=== PATIENT | female | born 1950 | race Caucasian/White ===

== ENCOUNTER 2018-10-08 09:36 | Emergency (ER) | payer MEDICARE, BC ==
[~2018-10-08] VITALS: Ht 162.6 cm; Wt 70.0 kg
[~2018-10-08 09:36] MED LIST: ASCO-205 PO; ASPI-1265 PO; COU4T PO; COU5T PO; DICL1TAB PO; ERGO400C PO; EVE1000C3 PO; FISH400C3 PO; MULT-1179 PO; OSC500T PO; SOTA80TA73 PO; UBID10CA4 PO; VITA1TAB20 PO; ZOC40T PO
[2018-10-08] MEDS ORDERED: ibuprofen 200mg tablet PO ONE (09:45)
[2018-10-08 10:54] VITALS: BP 132/65
== END 2018-10-08 10:56 | disposition home or self-care (01) ==
LOC: ER 09:36
DX: M19.032 Primary osteoarthritis, left wrist (principal); M25.532 Pain in left wrist; I48.91 Unspecified atrial fibrillation; Z90.49 Acquired absence of other specified parts of digestive tract; Z95.1 Presence of aortocoronary bypass graft; Z90.710 Acquired absence of both cervix and uterus; Z95.0 Presence of cardiac pacemaker; Z79.82 Long term (current) use of aspirin; Z79.899 Other long term (current) drug therapy; Z79.01 Long term (current) use of anticoagulants
CPT/HCPCS: 29125; 73100; 99283

== ENCOUNTER 2019-03-12 05:24 | Inpatient (IN) | payer MEDICARE, BC ==
[2019-03-10 15:15] LABS: CLARITY,URINE SLIGHTLY CLOUDY (Clear); COLOR,URINE YELLOW (Yellow); GLUCOSE, URINE NEGATIVE (Neg); KETONES,URINE NEGATIVE (Neg); LEUKOCYTE ESTERASE ,URINE NEGATIVE (Neg); NITRITES, URINE NEGATIVE (Neg); OCCULT BLOOD,URINE NEGATIVE (Neg); PROTEIN,URINE NEGATIVE (Neg); UROBILINOGEN,URINE 0.2 E.U/dL (0.2-1.0)
[2019-03-10 15:16] LABS: UA COLLECTION TYPE CLN CATCH MIDSTREAM
[2019-03-10 15:17] LABS: BASOPHILS % (AUTO) 0.7 % (0-1); EOSINOPHILS # (AUTO) 0.1 X10'3 (0-0.9); EOSINOPHILS % (AUTO) 1.5 % (0-6); LYMPHOCYTES # (AUTO) 2.2 X10'3 (1.1-4.8); LYMPHOCYTES % (AUTO) 35.6 % (21-51); MEAN CORPUSCULAR HEMOGLOBIN 32.8 PG (27.0-31.0); MEAN CORPUSCULAR VOLUME 96.5 FL (78-98); MEAN PLATELET VOLUME 8.4 FL (7.4-10.4); MONOCYTES # (AUTO) 0.5 X10'3 (0-0.9); MONOCYTES % (AUTO) 8.2 % (2-12); NEUTROPHILS # (AUTO) 3.3 X10'3 (1.8-7.7); PRE OP HEMATOCRIT 43.5 % (35.0-45.0); PRE OP HEMOGLOBIN 14.8 g/dL (12.0-16.0); PRE OP PLATELET COUNT 203 X10'3 (140-440); RED CELL DISTRIBUTION WIDTH 14.4 % (11.5-14.5)
[2019-03-10 15:24] LABS: AMORPHOUS URATES 2+; BACTERIA,URINE NONE SEEN /HPF (Neg); RBC,URINE NONE SEEN /HPF (0-2); SQUAMOUS EPITHELIAL CELL,UR FEW /LPF (FEW)
[2019-03-10 15:27] LABS: ALBUMIN 3.7 G/DL (3.4-5.0); ALBUMIN/GLOBULIN RATIO 1.1 (1.1-1.5); ALKALINE PHOSPHATASE 85 IU/L (46-116); BLOOD UREA NITROGEN 17 MG/DL (7-18); CALCIUM 9.6 MG/DL (8.5-10.1); CHLORIDE 104 MMOL/L (99-107); CREATININE 0.85 MG/DL (0.40-0.90); PRE OP ALT 62 U/L (30-65); PRE OP ANION GAP 7 (8-16); PRE OP AST 34 U/L (10-37); PRE OP BILIRUB, TOTAL 0.4 MG/DL (0.0-1.0); PRE OP GLUCOSE 92 MG/DL (70-104); PRE OP POTASSIUM 4.4 MMOL/L (3.4-5.1); PRE OP SODIUM 139 MMOL/L (135-145); eGFR 66 ML/MIN
[2019-03-10 15:30] LABS: PRE OP PROTIME 16.8 SECONDS (9.0-12.0)
[2019-03-10 15:32] LABS: PRE OP INR 1.7 INR
[~2019-03-12] VITALS: Ht 160 cm; Wt 72.7 kg
[2019-03-12] VITALS (22 sets, daily range): BP systolic 97–178; BP diastolic 55–88
[~2019-03-12 05:24] MED LIST changes: -ASCO-205 PO; +CHOL10002 PO; -COU4T PO; -COU5T PO; -DICL1TAB PO; +DIGO125T20 PO; -ERGO400C PO; -VITA1TAB20 PO; +WARF6TAB PO; +ringers solution, lacted 1,000 ML IV SCH
[2019-03-12] MEDS ORDERED: famotidine 20mg tablet PO ONE (05:30)
[2019-03-12] MEDS ORDERED: albuterol 2.5 MG/3 ML nebule NEB ONE (05:30)
[2019-03-12] MEDS ORDERED: LIDOcaine 1% (10mg/ml) 2ml vial ONE ×2 (05:58→06:42)
[2019-03-12 07:15] LABS: INR 1.1 INR
[2019-03-12] MEDS ORDERED: MIDAZolam 5mg/5ml vial ONE (07:19)
[2019-03-12] MEDS ORDERED: propofol inj 20 ML IV ONE (07:20)
[2019-03-12] MEDS ORDERED: rocuronium 10mg/ml inj IV ONE ×2 (07:20→07:46)
[2019-03-12] MEDS ORDERED: fentaNYL /PF 50mcg/ml 5ml ampule ONE (07:20)
[2019-03-12] MEDS ORDERED: cefazolin/dext.iso 2gm/100 ML IV ONE (07:45)
[2019-03-12] MEDS ORDERED: ePHEDrine 50MG/ML INJ. ONE (07:46)
[2019-03-12] MEDS ORDERED: sevoflurane 250ml liquid IH ONE (07:46)
[2019-03-12] MEDS ORDERED: morphine /PF 1mg/ml 10ml inj. ONE (08:48)
[2019-03-12] MEDS ORDERED: BUPIVAcaine/PF 2.5mg/ml (0.25%) 10ml vial ONE (08:49)
[2019-03-12] MEDS ORDERED: ringers solution, lacted 1,000 ML IV SCH (09:39)
[2019-03-12] MEDS ORDERED: naloxone 2mg/2ml inj 2 MG in normal saline 500ml IV soln 500 ML IV PRN (09:39)
[2019-03-12] MEDS ORDERED: morphine 4 MG/ML inj SYRINge IV PRN ×4 (09:40→11:45)
[2019-03-12] MEDS ORDERED: proCHLORperazine 10 MG/2 ml inj IV PRN (09:40)
[2019-03-12] MEDS ORDERED: ondansetron/PF 4mg/2ml inj IV PRN ×2 (09:40→11:45)
[2019-03-12] MEDS ORDERED: meperidine/PF 25mg/ml syringe IV PRN ×3 (09:40)
[2019-03-12] MEDS ORDERED: neostigmine methylsulfate 1 MG/ML 10ml vial ONE (11:39)
[2019-03-12] MEDS ORDERED: glycopyrrolate 0.2mg/ml inj ONE (11:39)
[2019-03-12] MEDS ORDERED: naloxone 0.4 mg/ml inj IV PRN (11:45)
[2019-03-12] MEDS ORDERED: CADD PCA waste documentation MC PRN (11:45)
[2019-03-12] MEDS ORDERED: HYDROcodone/acetaminophen 10/325mg tab PO PRN ×2 (11:45)
[2019-03-12] MEDS ORDERED: metoclopramide 5 mg/ml inj IV PRN (11:45)
[2019-03-12] MEDS ORDERED: albuterol 2.5 MG/3 ML nebule NEB PRN (11:45)
--- NOTE | 2019-03-12 11:45 | NUR ---
Received from OR via ICU BED, accompanied by Anesthesiologist DR. BERNAL and report given by Anesthesiolgist. PT ARRIVED WITH O2 VIA MASK AT 10L, ARTLINE TO RT RAD LEVELED AND ZEROED. CVL TO RT NECK. EPIDURAL IN PLACE, MEDICATION STARTED. CT TO LT CHEST X2 TO SUC, AIR NOTED, MIN OUTPUT. DRESSING CDI TO CHEST. FC IN PLACE WITH CLEAR YELLOW URINE. SCDS IN PLACE. MOVES UPPER EXT WELL, EPIDURAL PREVENTS PT FROM MOVING LOWER EXT. PULSES AND ASBESTOS REMOVAL SUPERVISOR WNL
[2019-03-12] MEDS: morphine/PF injection 20 MG, BUPIVAcaine 0.5% inj/PF 250 MG in normal saline 250ml IV s... EPI SCH (12:12)
[2019-03-12 12:15] LABS: ABG HCO3 24.5 mmol/L (22.0-26.0); ABG OXYGEN SATURATION 97.5 % (95-98); ABG PCO2 (T) 49.1 mmHg (32.0-45.0); ABG PH (T) 7.316 (7.350-7.450); ABG PO2 (T) 115.1 mmHg (83-108); FLOW 3 L/min; FMetHb 0.3 % (0.3-1.12); FO2Hb 97.2 % (94-100); TOTAL HEMOGLOBIN 12.9 G/dl (12.0-16.0)
--- NOTE | 2019-03-12 12:20 | NUR ---
Patient in recovery room. I have received report from ILSA Nicole and had the opportunity to ask questions. Awaiting pt's arrival to ICU room 2038.
--- NOTE | 2019-03-12 12:30 | NUR ---
Report called to receiving nurse ROMÁN ROSENBAUM. Transferred via ICU BED WITH X3 BAGS OF Belongings. Special Issues communicated to receiving nurse. VSS ON 3L NC. DR SMITH AWARE OF AIR LEAK.
--- NOTE | 2019-03-12 12:30 | NUR ---
Pt arrived from recovery room in bed. Post op vital signs obtained, will continue to monitor post op vitals per policy. Pt resting comfortably, in no acute distress. Opened eyes when greeted, asked this RN to "scratch my nose". Chest tube assessed, SCDs applied, pt assessed. Will continue to closely monitor.
[2019-03-12] MEDS: potassium Cl 20mEq in D5-NS 1,000 ML IV SCH (13:45)
[2019-03-12] MEDS ORDERED: NORepinephrine 8mg/ 250ml NS 250 ML IV PRN (15:12)
[2019-03-12] MEDS ORDERED: NORepinephrine 8mg/ 250ml NS 250 ML IV ONE (15:16)
[2019-03-12] MEDS: ceFAZolin 1GM/D5W- ADD-VANTAGE 50 ML IV SCH ×2 (17:00→23:52)
--- NOTE | 2019-03-12 17:45 | NUR ---
While in room to check blood glucose level & chatting with pt, pt became suddenly angry and crying, stating "I've asked so many times for fluids and nobody is helping me". Pt had been given water once awake & alert and this RN witnessed pt drink from cup of water independently without difficulty. Pt given 2 boxes of apple juice.
--- NOTE | 2019-03-12 18:26 | NUR ---
Problems reprioritized. Patient report given, questions answered & plan of care reviewed with ILSA Mack.
--- NOTE | 2019-03-12 18:30 | NUR ---
Patient in room ICU 2038. I have received report from Denisse ROSENBAUM and had the opportunity to ask questions and assume patient care.
[2019-03-13] VITALS (24 sets, daily range): BP systolic 87–128; BP diastolic 50–75
[2019-03-13] MEDS: potassium Cl 20mEq in D5-NS 1,000 ML IV SCH ×2 (03:32→12:43)
[2019-03-13 05:23] LABS: ALANINE AMINOTRANSFERASE 37 U/L (12-78); ALBUMIN 2.9 G/DL (3.4-5.0); ALBUMIN/GLOBULIN RATIO 1.1 (1.1-1.5); ALKALINE PHOSPHATASE 52 IU/L (46-116); ANION GAP 8 (8-16); ASPARTATE AMINO TRANSFERASE 20 U/L (10-37); BILIRUBIN,TOTAL 0.5 MG/DL (0.1-1.0); BLOOD UREA NITROGEN 11 MG/DL (7-18); BUN/CREATININE RATIO 17.7 (6.6-38.0); CALCIUM 8.4 MG/DL (8.5-10.1); CHLORIDE 105 MMOL/L (99-107); CREATININE 0.62 MG/DL (0.40-0.90); GLUCOSE 131 MG/DL (70-104); MAGNESIUM 1.6 MG/DL (1.5-2.4); POTASSIUM 3.9 MMOL/L (3.5-5.1); SODIUM 138 MMOL/L (135-145); TOTAL CARBON DIOXIDE 24.8 MMOL/L (24-32); TOTAL PROTEIN 5.5 G/DL (6.4-8.2); eGFR > 90 ML/MIN
[2019-03-13 05:23] LABS: BASOPHILS % (AUTO) 0.3 % (0-1); EOSINOPHILS % (AUTO) 0.3 % (0-6); HEMATOCRIT 37.8 % (35.0-45.0); HEMOGLOBIN 12.8 g/dl (12.0-16.0); LYMPHOCYTES # (AUTO) 1.5 X10'3 (1.1-4.8); LYMPHOCYTES % (AUTO) 17.9 % (21-51); MEAN CORPUSCULAR HEMOGLOBIN 32.7 PG (27.0-31.0); MEAN CORPUSCULAR HGB CONC 33.8 g/dL (33.0-36.5); MEAN CORPUSCULAR VOLUME 96.8 FL (78-98); MEAN PLATELET VOLUME 8.6 FL (7.4-10.4); MONOCYTES # (AUTO) 0.6 X10'3 (0-0.9); MONOCYTES % (AUTO) 7.5 % (2-12); NEUTROPHILS # (AUTO) 6.4 X10'3 (1.8-7.7); PLATELET COUNT 163 X10'3 (140-440); RED CELL DISTRIBUTION WIDTH 14.7 % (11.5-14.5); WHITE BLOOD COUNT 8.6 X10'3 (4.5-11.0)
--- NOTE | 2019-03-13 06:51 | NUR ---
Problems reprioritized. Patient report given, questions answered & plan of care reviewed with Jeane ROSENBAUM.
[2019-03-13] MEDS ORDERED: temazepam 15mg capsule PO PRN (13:45)
[2019-03-13] MEDS ORDERED: magnesium 4gm in 100ml NS 100 ML IV ONE (13:55)
[2019-03-13] MEDS: digoxin 125mcg (0.125mg) tablet PO SCH (16:19)
[2019-03-13] MEDS: calcium carbonate 500mg tablet PO SCH (16:19)
[2019-03-13] MEDS: morphine/PF injection 20 MG, BUPIVAcaine 0.5% inj/PF 250 MG in normal saline 250ml IV s... EPI SCH (16:54)
--- NOTE | 2019-03-13 18:27 | NUR ---
Problems reprioritized. Patient report given, questions answered & plan of care reviewed with Frederick ROSENBAUM.
--- NOTE | 2019-03-13 18:30 | NUR ---
Patient in room ICU 2038. I have received report from Jeane ROSENBAUM and had the opportunity to ask questions and assume patient care.
[2019-03-13] MEDS ORDERED: apixaban 5mg tablet PO SCH (20:00)
[2019-03-13] MEDS: sotalol 80mg tablet PO SCH (20:06)
[2019-03-13] MEDS: warfarin 3mg tablet PO SCH (20:07)
[2019-03-13] MEDS: atorvastatin 10mg tablet PO SCH (20:07)
[2019-03-13] MEDS: vitamin D (cholecalciferol) 1,000 unit tablet PO SCH (20:07)
[2019-03-13] MEDS ORDERED: FISH OIL PO SCH (21:00)
[2019-03-13] MEDS ORDERED: [UNRECOGNIZED DRUG - OTHER] PO SCH (21:00)
[2019-03-13] MEDS ORDERED: FLAX PO SCH (21:00)
[2019-03-13] MEDS ORDERED: BORAGE PO SCH (21:00)
[2019-03-14] VITALS (24 sets, daily range): BP systolic 81–119; BP diastolic 44–65
[2019-03-14 04:03] LABS: BASOPHILS % (AUTO) 0.1 % (0-1); EOSINOPHILS % (AUTO) 0.3 % (0-6); HEMATOCRIT 37.2 % (35.0-45.0); HEMOGLOBIN 12.8 g/dl (12.0-16.0); LYMPHOCYTES # (AUTO) 1.4 X10'3 (1.1-4.8); LYMPHOCYTES % (AUTO) 14.8 % (21-51); MEAN CORPUSCULAR HEMOGLOBIN 33.3 PG (27.0-31.0); MEAN CORPUSCULAR HGB CONC 34.4 g/dL (33.0-36.5); MEAN CORPUSCULAR VOLUME 96.6 FL (78-98); MEAN PLATELET VOLUME 8.5 FL (7.4-10.4); MONOCYTES # (AUTO) 0.9 X10'3 (0-0.9); MONOCYTES % (AUTO) 9.8 % (2-12); NEUTROPHILS # (AUTO) 7.2 X10'3 (1.8-7.7); PLATELET COUNT 138 X10'3 (140-440); RED BLOOD COUNT 3.84 X10'6 (4.20-5.60); RED CELL DISTRIBUTION WIDTH 14.5 % (11.5-14.5); WHITE BLOOD COUNT 9.5 X10'3 (4.5-11.0)
[2019-03-14 04:14] LABS: ALANINE AMINOTRANSFERASE 33 U/L (12-78); ALBUMIN 2.4 G/DL (3.4-5.0); ALBUMIN/GLOBULIN RATIO 0.8 (1.1-1.5); ALKALINE PHOSPHATASE 53 IU/L (46-116); ANION GAP 3 (8-16); ASPARTATE AMINO TRANSFERASE 28 U/L (10-37); BILIRUBIN,TOTAL 0.4 MG/DL (0.1-1.0); BLOOD UREA NITROGEN 8 MG/DL (7-18); BUN/CREATININE RATIO 12.1 (6.6-38.0); CALCIUM 8.2 MG/DL (8.5-10.1); CHLORIDE 104 MMOL/L (99-107); CREATININE 0.66 MG/DL (0.40-0.90); GLUCOSE 116 MG/DL (70-104); POTASSIUM 3.8 MMOL/L (3.5-5.1); SODIUM 136 MMOL/L (135-145); TOTAL CARBON DIOXIDE 29.4 MMOL/L (24-32); TOTAL PROTEIN 5.3 G/DL (6.4-8.2); eGFR 89 ML/MIN
[2019-03-14 04:15] LABS: INR 1.1 INR
--- NOTE | 2019-03-14 06:30 | NUR ---
Patient in room ICU 2038. I have received report from ILSA Mack and had the opportunity to ask questions and assume patient care.
--- NOTE | 2019-03-14 06:43 | NUR ---
Problems reprioritized. Patient report given, questions answered & plan of care reviewed with Terri ROSENBAUM.
[2019-03-14] MEDS: sotalol 80mg tablet PO SCH ×2 (08:00→20:36)
[2019-03-14] MEDS ORDERED: UBIDECARENONE 200 MG PO SCH (08:00)
[2019-03-14] MEDS ORDERED: [UNRECOGNIZED DRUG - OTHER] PO SCH (08:00)
[2019-03-14] MEDS: multivitamins, therapeutics tablet PO SCH (08:19)
[2019-03-14] MEDS: aspirin 81mg tab.chew PO SCH (08:20)
[2019-03-14] MEDS: digoxin 125mcg (0.125mg) tablet PO SCH (08:20)
[2019-03-14] MEDS ORDERED: HYDROmorphone 1 mg/ml syringe IV PRN (10:40)
[2019-03-14] MEDS ORDERED: HYDROmorphone inj. 0.5 MG/0.5 ML DISP.SYRIN IV PRN (10:40)
[2019-03-14] MEDS ORDERED: HYDROcodone/acetaminophen 10/325mg tab PO PRN (10:40)
--- NOTE | 2019-03-14 10:40 | NUR ---
Dr Olson at bedside, informed him of patient's status, still on epidural at lowest dose, levo at 2mcg unable to wean. He assessed chest tube and put it to water seal. I told him I held sotolol to see if we can get her levophed needs decreased. He states okay to turn off epidural, wait 4 hours and if tolerating well it can be taken out by anaesthesia, also start PO pain meds, IV for breakthrough - see orders. States try to get levophed off also. States pt needs to get up with PT and continue pulmonary toileting, can go upstairs to surgical probably tomorrow. States okay to DC accu checks as patient has not met protocol.
[2019-03-14] MEDS: calcium carbonate 500mg tablet PO SCH (12:53)
--- NOTE | 2019-03-14 17:30 | NUR ---
Anesthesiologist at bedside, removed epidural, patient tolerated well, site covered with bandaid. Medication bag wasted with Jeane Weiner RN and sheet filled out, returned to pharmacy.
--- NOTE | 2019-03-14 18:27 | NUR ---
Problems reprioritized. Patient report given, questions answered & plan of care reviewed with ILSA Mack.
--- NOTE | 2019-03-14 18:30 | NUR ---
Patient in room ICU 2038. I have received report from Terri ROSENBAUM and had the opportunity to ask questions and assume patient care.
[2019-03-14] MEDS: atorvastatin 10mg tablet PO SCH (20:35)
[2019-03-14] MEDS: vitamin D (cholecalciferol) 1,000 unit tablet PO SCH (20:35)
[2019-03-14] MEDS: warfarin 3mg tablet PO SCH (20:36)
[2019-03-15] VITALS (20 sets, daily range): BP systolic 86–131; BP diastolic 46–73
[2019-03-15] MEDS: morphine/PF injection 20 MG, BUPIVAcaine 0.5% inj/PF 250 MG in normal saline 250ml IV s... EPI SCH (00:06)
[2019-03-15 03:27] LABS: BASOPHILS % (AUTO) 0.4 % (0-1); EOSINOPHILS # (AUTO) 0.1 X10'3 (0-0.9); EOSINOPHILS % (AUTO) 0.9 % (0-6); HEMATOCRIT 38.3 % (35.0-45.0); HEMOGLOBIN 12.9 g/dl (12.0-16.0); LYMPHOCYTES # (AUTO) 1.8 X10'3 (1.1-4.8); LYMPHOCYTES % (AUTO) 21.4 % (21-51); MEAN CORPUSCULAR HEMOGLOBIN 32.7 PG (27.0-31.0); MEAN CORPUSCULAR HGB CONC 33.6 g/dL (33.0-36.5); MEAN CORPUSCULAR VOLUME 97.1 FL (78-98); MEAN PLATELET VOLUME 8.5 FL (7.4-10.4); MONOCYTES # (AUTO) 0.7 X10'3 (0-0.9); NEUTROPHILS # (AUTO) 5.9 X10'3 (1.8-7.7); NEUTROPHILS % (AUTO) 69.3 % (42-75); PLATELET COUNT 131 X10'3 (140-440); RED BLOOD COUNT 3.94 X10'6 (4.20-5.60); RED CELL DISTRIBUTION WIDTH 14.9 % (11.5-14.5); WHITE BLOOD COUNT 8.5 X10'3 (4.5-11.0)
[2019-03-15 03:30] LABS: INR 1.1 INR
[2019-03-15 03:39] LABS: ALANINE AMINOTRANSFERASE 32 U/L (12-78); ALBUMIN 2.2 G/DL (3.4-5.0); ALBUMIN/GLOBULIN RATIO 0.6 (1.1-1.5); ALKALINE PHOSPHATASE 56 IU/L (46-116); ANION GAP 5 (8-16); ASPARTATE AMINO TRANSFERASE 31 U/L (10-37); BILIRUBIN,TOTAL 0.3 MG/DL (0.1-1.0); BLOOD UREA NITROGEN 12 MG/DL (7-18); BUN/CREATININE RATIO 16.2 (6.6-38.0); CALCIUM 8.5 MG/DL (8.5-10.1); CHLORIDE 106 MMOL/L (99-107); CREATININE 0.74 MG/DL (0.40-0.90); GLUCOSE 105 MG/DL (70-104); SODIUM 138 MMOL/L (135-145); TOTAL CARBON DIOXIDE 27.3 MMOL/L (24-32); TOTAL PROTEIN 5.6 G/DL (6.4-8.2); eGFR 78 ML/MIN
--- NOTE | 2019-03-15 06:23 | NUR ---
Problems reprioritized. Patient report given, questions answered & plan of care reviewed with Terri ROSENBAUM.
--- NOTE | 2019-03-15 06:24 | NUR ---
Patient in room ICU 2038. I have received report from ILSA Mack and had the opportunity to ask questions and assume patient care.
[2019-03-15] MEDS: digoxin 125mcg (0.125mg) tablet PO SCH (08:07)
[2019-03-15] MEDS: multivitamins, therapeutics tablet PO SCH (08:08)
[2019-03-15] MEDS: aspirin 81mg tab.chew PO SCH (08:08)
[2019-03-15] MEDS: sotalol 80mg tablet PO SCH ×2 (08:09→19:54)
--- NOTE | 2019-03-15 09:57 | NUR ---
Pt up to chair. Physical therapy to assist, but patient very anxious, struggles to follow commands because she gets so nervous and panicked, she keeps stating "I need air, I can't breath". Her VS are completely stable, oxygen sats are 96% on 3L. She transferred to the chair but kept saying "you guys are freaking me out, I can't do that". Will continue to provide reassurance to patient and monitor closely.
--- NOTE | 2019-03-15 10:05 | NUR ---
Critical care rounds: pt update given. Dr Penn states if Dr Olson okay for transfer then pt can go upstairs.
--- NOTE | 2019-03-15 12:55 | NUR ---
Garibay catheter dc'd. Pt extremely uncomfortable with bladder spasms and pain in her bladder, requesting garibay catheter to be taken out. Pt is post op day 3 and making lots of urine and up walking frequently. Sat on the commode afterwards and tolerated well.
[2019-03-15] MEDS: calcium carbonate 500mg tablet PO SCH (13:08)
[2019-03-15] MEDS: potassium Cl 20mEq in D5-NS 1,000 ML IV SCH (13:09)
--- NOTE | 2019-03-15 14:15 | NUR ---
Dr Olson at bedside given full update, we discussed status and that patient is ready to go upstairs, chest tubes out probably tomorrow, he's waiting to have the output decrease some more. He gave orders to transfer to surgical with tele.
[2019-03-15] MEDS ORDERED: BUPR300T54 PO (16:26)
[2019-03-15] MEDS ORDERED: OMEG-143 PO (16:32)
--- NOTE | 2019-03-15 18:34 | NUR ---
Problems reprioritized. Patient report given, questions answered & plan of care reviewed with ILSA Gonzalez.
--- NOTE | 2019-03-15 18:35 | NUR ---
Patient in room ICU 2038. I have received report from Terri ROSENBAUM and had the opportunity to ask questions and assume patient care.
--- NOTE | 2019-03-15 19:56 | NUR ---
Patient in room ICU 2038. I have received report from ILSA Gonzalez and had the opportunity to ask questions and assume patient care.
--- NOTE | 2019-03-15 20:25 | NUR ---
Report called to receiving nurse Citlali ROSENBAUM. Transferred via wheelchair with all belongings . Patient on Telemetry Unit #5. Patient tolerated tranfer well without any complaints.Special Issues communicated to receiving nurse.
--- NOTE | 2019-03-15 20:37 | NUR ---
Pt arrived to floor via wheelchair accompanied by Carlos ROSENBAUM. Patient transfered to bed SBA. Chest tube to water seal with good fluctuation when breathing. Chest tube contains 1700 mL serosang fluid. Collection chamber marked. Patient unable to take deep breath. Encouraged to use IS.
[2019-03-15] MEDS: vitamin D (cholecalciferol) 1,000 unit tablet PO SCH (21:07)
[2019-03-15] MEDS: atorvastatin 10mg tablet PO SCH (21:07)
[2019-03-15] MEDS: warfarin 3mg tablet PO SCH (21:08)
[2019-03-16] VITALS: BP 117/60
[2019-03-16] MEDS: magnesium hydroxide 30ml (MOM) UD suspension PO PRN (00:31)
[2019-03-16] MEDS: HYDROcodone/acetaminophen 5mg/325mg tablet PO PRN ×2 (00:31→21:35)
[2019-03-16] MEDS ORDERED: mag hydrox/Alum hydrox/simeth 30ml oral suspension PO PRN (01:10)
[2019-03-16 04:58] LABS: INR 1.3 INR
--- NOTE | 2019-03-16 06:22 | NUR ---
Problems reprioritized. Patient report given, questions answered & plan of care reviewed with ILSA Fisher.
--- NOTE | 2019-03-16 06:25 | NUR ---
Patient in room [facility] 347. I have received report from Citlali Moody RN and had the opportunity to ask questions and assume patient care.
--- NOTE | 2019-03-16 06:52 | NUR ---
Patient in room C[facility] 347. I have received report from Natalia ROSENBAUM and had the opportunity to ask questions and assume patient care.
[2019-03-16 07:00] VITALS: BP 113/63
[2019-03-16] MEDS: multivitamins, therapeutics tablet PO SCH (07:49)
[2019-03-16] MEDS: aspirin 81mg tab.chew PO SCH (07:49)
[2019-03-16] MEDS: digoxin 125mcg (0.125mg) tablet PO SCH (07:51)
[2019-03-16] MEDS: sotalol 80mg tablet PO SCH ×2 (07:52→21:35)
[2019-03-16 11:25] VITALS: BP 113/62
--- NOTE | 2019-03-16 11:33 | NUR ---
Student Medication Administration: For this medication-pass time frame, all medication were reviewed, dispensed, administered and documented per hospital policy by Kenny supervisor public health nursing.
--- NOTE | 2019-03-16 11:33 | NUR ---
Student documentation: I have reviewed and agree with all interventions, assessments performed and documented by Kenny, nursing informatics clinical analyst.
--- NOTE | 2019-03-16 11:58 | NUR ---
Problems reprioritized. Patient report given, questions answered & plan of care reviewed with Natalia RN.
[2019-03-16] MEDS: calcium carbonate 500mg tablet PO SCH (13:52)
--- NOTE | 2019-03-16 16:00 | NUR ---
Noted bubbling in atrium of patient's chest tube whenever patient proceeds to cough. Called Dr. Olson and notified him of this. MD aware. Chest x-ray ordered for tomorrow morning.
--- NOTE | 2019-03-16 18:38 | NUR ---
Problems reprioritized. Patient report given, questions answered & plan of care reviewed with ILSA Larry.
[2019-03-16 20:00] VITALS: BP 122/63
[2019-03-16] MEDS: vitamin D (cholecalciferol) 1,000 unit tablet PO SCH (21:34)
[2019-03-16] MEDS: warfarin 3mg tablet PO SCH (21:34)
[2019-03-16] MEDS: atorvastatin 10mg tablet PO SCH (21:35)
[2019-03-17] VITALS: BP 106/58
[2019-03-17 05:50] LABS: INR 1.7 INR
--- NOTE | 2019-03-17 06:39 | NUR ---
Patient in room [facility] 347. I have received report from ILSA Larry and had the opportunity to ask questions and assume patient care.
[2019-03-17 07:00] VITALS: BP 129/77
[2019-03-17] MEDS: aspirin 81mg tab.chew PO SCH (08:21)
[2019-03-17] MEDS: multivitamins, therapeutics tablet PO SCH (08:21)
[2019-03-17] MEDS: sotalol 80mg tablet PO SCH ×2 (08:25→23:20)
[2019-03-17] MEDS: digoxin 125mcg (0.125mg) tablet PO SCH (08:25)
[2019-03-17] MEDS: enoxaparin 40mg/0.4ml syringe SUBCUT SCH (09:39)
--- NOTE | 2019-03-17 10:06 | NUR ---
Initial: Patient is s/p pneumolysis, left upper lobe wedge resection, left thoracotomy, node disection, left upper lobe lobectomy POD #5. Patient has a good appetite and is eating well post op, average PO intake 75-100% of regular diet meeting nutrient needs. Pt with chest tube in place, possibly to be removed today per MD notes. LB 03/16. Will continue to follow. Recommend: 1. Continue regular diet 2. Monitor need for ONS 3. Weight per rx Addendum: 03/17/19 at [address] Amended: Links added.
[2019-03-17 11:00] VITALS: BP 132/64
[2019-03-17] MEDS: calcium carbonate 500mg tablet PO SCH (12:59)
--- NOTE | 2019-03-17 18:13 | NUR ---
Problems reprioritized. Patient report given, questions answered & plan of care reviewed with ILSA Larry.
[2019-03-17] MEDS: atorvastatin 10mg tablet PO SCH (23:15)
[2019-03-17] MEDS: vitamin D (cholecalciferol) 1,000 unit tablet PO SCH (23:16)
[2019-03-17] MEDS: warfarin 3mg tablet PO SCH (23:19)
[2019-03-17 23:24] VITALS: BP 106/71
[2019-03-18 05:54] LABS: INR 1.8 INR
--- NOTE | 2019-03-18 06:35 | NUR ---
Patient in room [facility] 347. I have received report from ILSA Larry and had the opportunity to ask questions and assume patient care.
[2019-03-18] MEDS: digoxin 125mcg (0.125mg) tablet PO SCH (07:57)
[2019-03-18] MEDS: aspirin 81mg tab.chew PO SCH (07:58)
[2019-03-18] MEDS: enoxaparin 40mg/0.4ml syringe SUBCUT SCH (07:59)
[2019-03-18] MEDS: sotalol 80mg tablet PO SCH ×2 (07:59→20:00)
[2019-03-18] MEDS: multivitamins, therapeutics tablet PO SCH (07:59)
[2019-03-18 08:00] VITALS: BP 99/65
[2019-03-18] MEDS: ceFAZolin 1GM/D5W- ADD-VANTAGE 50 ML IV SCH ×2 (09:26→16:22)
--- NOTE | 2019-03-18 10:15 | NUR ---
Received call from Ernesto Nicole RN that pt's needed lead placement checked d/t appearance of pacer spikes as well as "long periods of no beats". Pt awoke from sleep denying any discomfort or concern, and leads changed by AQUACULTURE WORKER. BP = 100/46, HR 71. Bonnie confirmed that rhythm has returned to baseline w/ change of pads. Pt remains comfortable, yet reports desire to rest stating "I haven't had enough sleep here." ILSA Chen notified.
[2019-03-18 12:00] VITALS: BP 89/51
[2019-03-18] MEDS: calcium carbonate 500mg tablet PO SCH (13:02)
--- NOTE | 2019-03-18 18:46 | NUR ---
Problems reprioritized. Patient report given, questions answered & plan of care reviewed with ILSA Arechiga.
[2019-03-18 19:00] VITALS: BP 95/51
[2019-03-18] MEDS: lactobacillus rhamnosus 10,000 MMU CELLS/CAPSULE PO SCH (21:20)
[2019-03-18] MEDS: atorvastatin 10mg tablet PO SCH (21:20)
[2019-03-18] MEDS: warfarin 3mg tablet PO SCH (21:20)
[2019-03-18] MEDS: vitamin D (cholecalciferol) 1,000 unit tablet PO SCH (21:21)
[2019-03-19] VITALS: BP 98/60
[2019-03-19] MEDS: ceFAZolin 1GM/D5W- ADD-VANTAGE 50 ML IV SCH ×4 (00:43→23:47)
[2019-03-19 05:57] LABS: INR 2.3 INR
--- NOTE | 2019-03-19 06:28 | NUR ---
Problems reprioritized. Patient report given, questions answered & plan of care reviewed with Jenniffer ROSENBAUM. Addendum: 03/19/19 at 0629 by Geni Velez RN Amended: Links added.
[2019-03-19 07:15] VITALS: BP 120/60
[2019-03-19] MEDS: sotalol 80mg tablet PO SCH ×2 (07:45→20:00)
[2019-03-19] MEDS: aspirin 81mg tab.chew PO SCH (07:45)
[2019-03-19] MEDS: digoxin 125mcg (0.125mg) tablet PO SCH (07:49)
[2019-03-19] MEDS: lactobacillus rhamnosus 10,000 MMU CELLS/CAPSULE PO SCH ×2 (07:49→20:40)
[2019-03-19] MEDS: multivitamins, therapeutics tablet PO SCH (07:49)
[2019-03-19] MEDS: enoxaparin 40mg/0.4ml syringe SUBCUT SCH (07:50)
[2019-03-19 11:03] VITALS: BP 100/50
[2019-03-19] MEDS: calcium carbonate 500mg tablet PO SCH (12:01)
--- NOTE | 2019-03-19 18:28 | NUR ---
Problems reprioritized. Patient report given, questions answered & plan of care reviewed with ILSA Godwin.
--- NOTE | 2019-03-19 18:32 | NUR ---
Patient in room [facility] 347. I have received report from ILSA Rich and had the opportunity to ask questions and assume patient care. Addendum: 03/19/19 at 1832 by Kiara Marmolejo RN Amended: Links added.
[2019-03-19 20:00] VITALS: BP 92/59
[2019-03-19] MEDS: atorvastatin 10mg tablet PO SCH (20:40)
[2019-03-19] MEDS: warfarin 3mg tablet PO SCH (20:41)
[2019-03-19] MEDS: vitamin D (cholecalciferol) 1,000 unit tablet PO SCH (20:42)
[2019-03-20 00:36] VITALS: BP 81/41
[2019-03-20 03:52] VITALS: BP 100/41
[2019-03-20 06:13] LABS: INR 2.8 INR
--- NOTE | 2019-03-20 06:27 | NUR ---
Problems reprioritized. Patient report given, questions answered & plan of care reviewed with ILSA Rich.
[2019-03-20 07:35] VITALS: BP 105/53
[2019-03-20] MEDS: ceFAZolin 1GM/D5W- ADD-VANTAGE 50 ML IV SCH ×3 (07:55→23:06)
[2019-03-20] MEDS: aspirin 81mg tab.chew PO SCH (07:56)
[2019-03-20] MEDS: digoxin 125mcg (0.125mg) tablet PO SCH (07:57)
[2019-03-20] MEDS: lactobacillus rhamnosus 10,000 MMU CELLS/CAPSULE PO SCH ×2 (07:57→20:25)
[2019-03-20] MEDS: sotalol 80mg tablet PO SCH ×2 (07:57→20:29)
[2019-03-20] MEDS: multivitamins, therapeutics tablet PO SCH (07:58)
[2019-03-20] MEDS: enoxaparin 40mg/0.4ml syringe SUBCUT SCH (07:59)
[2019-03-20] MEDS: calcium carbonate 500mg tablet PO SCH (12:22)
[2019-03-20 12:27] VITALS: BP 91/55
--- NOTE | 2019-03-20 14:00 | NUR ---
MD at bedside, patient telling MD that she would like to go home and be with her cats. MD stated patient will stay until Friday. Addendum: 03/20/19 at 1529 by Jenniffer Bryson RN onsite case manager notified.
[2019-03-20] MEDS: traMADol 50MG tablet PO PRN (14:25)
[2019-03-20 18:00] VITALS: BP 92/52
--- NOTE | 2019-03-20 18:25 | NUR ---
Patient in room [facility] 347. I have received report from Jenniffer ROSENBAUM and had the opportunity to ask questions and assume patient care.
--- NOTE | 2019-03-20 18:25 | NUR ---
Problems reprioritized. Patient report given, questions answered & plan of care reviewed with ILSA Burks.
[2019-03-20] MEDS: atorvastatin 10mg tablet PO SCH (20:25)
[2019-03-20] MEDS: vitamin D (cholecalciferol) 1,000 unit tablet PO SCH (20:25)
[2019-03-20 20:29] VITALS: BP 109/48
[2019-03-20] MEDS ORDERED: warfarin 5mg tablet PO ONE (21:00)
[2019-03-20] MEDS: buPROPion SR 150mg tablet PO SCH (22:22)
[2019-03-21] VITALS: BP 96/44
--- NOTE | 2019-03-21 06:30 | NUR ---
Problems reprioritized. Patient report given, questions answered & plan of care reviewed with Chandni ROSENBAUM. pt in bed watching tv. no signs of distress. iv intact, SL. call light and frq used belongings within reach.
--- NOTE | 2019-03-21 06:35 | NUR ---
Patient in room [facility] 347. I have received report from ILSA Burks and had the opportunity to ask questions and assume patient care. Patient resting comfortably at this time. Call light and items of frequent use in reach of patient.
[2019-03-21 07:00] VITALS: BP 98/55
[2019-03-21] MEDS: ceFAZolin 1GM/D5W- ADD-VANTAGE 50 ML IV SCH ×2 (07:48→15:39)
[2019-03-21] MEDS: aspirin 81mg tab.chew PO SCH (07:48)
[2019-03-21] MEDS: lactobacillus rhamnosus 10,000 MMU CELLS/CAPSULE PO SCH ×2 (07:48→22:12)
[2019-03-21] MEDS: multivitamins, therapeutics tablet PO SCH (07:49)
[2019-03-21] MEDS: buPROPion SR 150mg tablet PO SCH ×2 (07:49→22:12)
[2019-03-21 07:50] VITALS: BP 106/66
[2019-03-21] MEDS: sotalol 80mg tablet PO SCH ×2 (07:54→20:00)
[2019-03-21] MEDS: digoxin 125mcg (0.125mg) tablet PO SCH (07:54)
[2019-03-21 11:00] VITALS: BP 87/53
[2019-03-21] MEDS: calcium carbonate 500mg tablet PO SCH (12:50)
--- NOTE | 2019-03-21 18:10 | NUR ---
Problems reprioritized. Patient report given, questions answered & plan of care reviewed with ILSA Steen. Patient just finished eating dinner at this time. Call light and items of frequent use in reach of patient.
--- NOTE | 2019-03-21 18:30 | NUR ---
Patient in room [facility] 347. I have received report from Libra ROSENBAUM and had the opportunity to ask questions and assume patient care. Addendum: 03/21/19 at 2348 by Celsa Calix RN Received report from Chandni ROSENBAUM, not Libra.
[2019-03-21 20:00] VITALS: BP 89/45
[2019-03-21] MEDS ORDERED: warfarin 4mg tablet PO ONE (21:00)
[2019-03-21] MEDS: magnesium hydroxide 30ml (MOM) UD suspension PO PRN (22:10)
[2019-03-21] MEDS: vitamin D (cholecalciferol) 1,000 unit tablet PO SCH (22:11)
[2019-03-21] MEDS: atorvastatin 10mg tablet PO SCH (22:12)
--- NOTE | 2019-03-21 23:43 | NUR ---
Pt states that foam tape under the left breast is irritating to her. Assessed area, no redness or irritation noted. Discussed MD orders not to remove island dressing under tape. Pt possibly home in the am, will address changing the entire dressing with Dr Olson during am rounding.
[2019-03-22] VITALS: BP 120/62
[2019-03-22] MEDS: ceFAZolin 1GM/D5W- ADD-VANTAGE 50 ML IV SCH ×3 (00:46→16:28)
[2019-03-22 05:19] LABS: BASOPHILS # (AUTO) 0.1 X10'3 (0-0.2); BASOPHILS % (AUTO) 0.9 % (0-1); EOSINOPHILS # (AUTO) 0.3 X10'3 (0-0.9); EOSINOPHILS % (AUTO) 3.3 % (0-6); HEMATOCRIT 36.7 % (35.0-45.0); HEMOGLOBIN 12.4 g/dl (12.0-16.0); LYMPHOCYTES % (AUTO) 24.2 % (21-51); MEAN CORPUSCULAR HEMOGLOBIN 32.4 PG (27.0-31.0); MEAN CORPUSCULAR HGB CONC 33.7 g/dL (33.0-36.5); MEAN CORPUSCULAR VOLUME 96.3 FL (78-98); MEAN PLATELET VOLUME 8.2 FL (7.4-10.4); MONOCYTES # (AUTO) 0.6 X10'3 (0-0.9); MONOCYTES % (AUTO) 7.3 % (2-12); NEUTROPHILS # (AUTO) 5.3 X10'3 (1.8-7.7); NEUTROPHILS % (AUTO) 64.3 % (42-75); PLATELET COUNT 353 X10'3 (140-440); RED BLOOD COUNT 3.81 X10'6 (4.20-5.60); RED CELL DISTRIBUTION WIDTH 14.6 % (11.5-14.5); WHITE BLOOD COUNT 8.3 X10'3 (4.5-11.0)
[2019-03-22 05:24] LABS: INR 3.5 INR
--- NOTE | 2019-03-22 06:25 | NUR ---
Patient in room [facility] 347. I have received report from ILSA Steen and had the opportunity to ask questions and assume patient care.
[2019-03-22 06:30] VITALS: BP 118/58
--- NOTE | 2019-03-22 06:48 | NUR ---
Problems reprioritized. Patient report given, questions answered & plan of care reviewed with Miri RN.
[2019-03-22] MEDS: aspirin 81mg tab.chew PO SCH (08:39)
[2019-03-22] MEDS: sotalol 80mg tablet PO SCH ×2 (08:40→20:21)
[2019-03-22] MEDS: lactobacillus rhamnosus 10,000 MMU CELLS/CAPSULE PO SCH ×2 (08:41→20:21)
[2019-03-22] MEDS: multivitamins, therapeutics tablet PO SCH (08:42)
[2019-03-22] MEDS: digoxin 125mcg (0.125mg) tablet PO SCH (08:42)
[2019-03-22] MEDS: buPROPion SR 150mg tablet PO SCH ×2 (08:43→20:21)
[2019-03-22] MEDS: traMADol 50MG tablet PO PRN (08:43)
[2019-03-22 11:00] VITALS: BP 97/55
[2019-03-22] MEDS: calcium carbonate 500mg tablet PO SCH (12:31)
[2019-03-22] MEDS: magnesium hydroxide 30ml (MOM) UD suspension PO PRN (13:59)
--- NOTE | 2019-03-22 16:15 | NUR ---
Dietary alert consult: Pt reports not liking food but PO 100% meals meeting needs. Likely d/c tonight per pt. Pt seen by CLEVE and agrees to extra seasoning packet, lemon packet, and marinara sauce tonight and declines additional food preferences at this time. Recommend: 1. Continue regular diet 2. Weight per rx Addendum: 03/22/19 at [address] Amended: Links added.
--- NOTE | 2019-03-22 18:30 | NUR ---
Problems reprioritized. Patient report given, questions answered & plan of care reviewed with Monica RN.
[2019-03-22 19:30] VITALS: BP 103/59
[2019-03-22] MEDS: vitamin D (cholecalciferol) 1,000 unit tablet PO SCH (20:21)
[2019-03-22] MEDS: atorvastatin 10mg tablet PO SCH (20:21)
[2019-03-23] VITALS: BP 130/62
[2019-03-23] MEDS: ceFAZolin 1GM/D5W- ADD-VANTAGE 50 ML IV SCH ×2 (00:21→08:17)
[2019-03-23 05:34] LABS: INR 3.4 INR
[2019-03-23 07:00] VITALS: BP 96/54
[2019-03-23] MEDS: sotalol 80mg tablet PO SCH (08:00)
[2019-03-23] MEDS: lactobacillus rhamnosus 10,000 MMU CELLS/CAPSULE PO SCH (08:14)
[2019-03-23] MEDS: buPROPion SR 150mg tablet PO SCH (08:14)
[2019-03-23] MEDS: multivitamins, therapeutics tablet PO SCH (08:14)
[2019-03-23] MEDS: aspirin 81mg tab.chew PO SCH (08:14)
[2019-03-23] MEDS: digoxin 125mcg (0.125mg) tablet PO SCH (08:16)
[2019-03-23] MEDS ORDERED: CEPH-572 PO (09:35)
[2019-03-23 12:00] VITALS: BP 104/53
[2019-03-23] MEDS: calcium carbonate 500mg tablet PO SCH (13:33)
== END 2019-03-23 14:34 | disposition home or self-care (01) | DRG 165 ==
LOC: PAS IN 05:24 → EDSTATUS 07:30 → ICU 2S 12:30 → SUR 3N 03-15 20:31
PROVIDERS: ADMIT Surgery; ATTEND Surgery
PROC: 07T70ZZ Resection of Thorax Lymphatic, Open Approach (ICD-10-PCS; 2019-03-12)
PROC: 3E0T3BZ Introduction of Anesthetic Agent into Peripheral Nerves and Plexi, Percutaneous Approach (ICD-10-PCS; 2019-03-12)
PROC: 02HV33Z Insertion of Infusion Device into Superior Vena Cava, Percutaneous Approach (ICD-10-PCS; 2019-03-12)
PROC: 0BTG0ZZ Resection of Left Upper Lung Lobe, Open Approach (ICD-10-PCS; principal; 2019-03-12 07:46)
DX: C34.12 Malignant neoplasm of upper lobe, left bronchus or lung (principal); I10 Essential (primary) hypertension; Z79.899 Other long term (current) drug therapy; Z79.82 Long term (current) use of aspirin; Z88.8 Allergy status to other drugs, medicaments and biological substances
CPT/HCPCS: 36415; 36600; 71045; 71046; 73560; 80053; 81001; 82803; 82948; 83735; 85018; 85025; 85610; 85730; 86885; 86900; 86901; 87070; 87075; 87088; 87102; 87186; 88305; 88307; 88309; 88331; 88341; 88342; 93970; 94760; 97110; 97116; 97162; 97530; A6255; A6257; A6258; A6449; A7000; A7048; C1758; C9250; G0378; J0690; J1650; J2250; J2274; J2704; J2710; J3010; J3475; J3490; J7030; J7120

== ENCOUNTER 2019-07-19 15:06 | Emergency (ER) | payer MEDICARE, BC ==
[~2019-07-19] VITALS: Ht 162.6 cm; Wt 73.8 kg
[~2019-07-19 15:06] MED LIST changes: +BUPR300T54 PO; -FISH400C3 PO; +OMEG-143 PO; -ringers solution, lacted 1,000 ML IV SCH
[2019-07-19 15:11] VITALS: BP 116/66
== END 2019-07-19 16:23 | disposition home or self-care (01) ==
LOC: ER 15:06
DX: S93.492A Sprain of other ligament of left ankle, initial encounter (principal); I48.91 Unspecified atrial fibrillation; Z90.49 Acquired absence of other specified parts of digestive tract; Z95.1 Presence of aortocoronary bypass graft; Z90.710 Acquired absence of both cervix and uterus; Z95.0 Presence of cardiac pacemaker; Z88.8 Allergy status to other drugs, medicaments and biological substances; Z88.2 Allergy status to sulfonamides; Z79.899 Other long term (current) drug therapy; X58.XXXA Exposure to other specified factors, initial encounter; Y93.89 Activity, other specified; Y92.89 Other specified places as the place of occurrence of the external cause; Y99.8 Other external cause status
CPT/HCPCS: 73610; 99283

== ENCOUNTER 2020-09-05 07:22 | Day surgery (SDC) | payer MEDICARE, BC ==
[2020-09-04 15:19] LABS: BASOPHILS % (AUTO) 0.6 % (0-1); EOSINOPHILS # (AUTO) 0.1 X10'3 (0-0.9); EOSINOPHILS % (AUTO) 1.3 % (0-6); HEMATOCRIT 44.3 % (35.0-45.0); LYMPHOCYTES # (AUTO) 3.1 X10'3 (1.1-4.8); LYMPHOCYTES % (AUTO) 40.4 % (21-51); MEAN CORPUSCULAR HEMOGLOBIN 33.2 PG (27.0-31.0); MEAN CORPUSCULAR HGB CONC 33.9 g/dL (33.0-36.5); MEAN PLATELET VOLUME 8.7 FL (7.4-10.4); MONOCYTES # (AUTO) 0.6 X10'3 (0-0.9); MONOCYTES % (AUTO) 7.8 % (2-12); NEUTROPHILS # (AUTO) 3.8 X10'3 (1.8-7.7); NEUTROPHILS % (AUTO) 49.9 % (42-75); PLATELET COUNT 200 X10'3 (140-440); RED BLOOD COUNT 4.52 X10'6 (4.20-5.60); RED CELL DISTRIBUTION WIDTH 14.9 % (11.5-14.5); WHITE BLOOD COUNT 7.7 X10'3 (4.5-11.0)
[2020-09-04 15:28] LABS: ALBUMIN 3.7 G/DL (3.4-5.0); ANION GAP 8 (8-16); BLOOD UREA NITROGEN 15 MG/DL (7-18); CALCIUM 9.3 MG/DL (8.5-10.1); CHLORIDE 108 MMOL/L (99-107); CREATININE 0.88 MG/DL (0.40-0.90); GLUCOSE 101 MG/DL (70-104); POTASSIUM 4.4 MMOL/L (3.5-5.1); SODIUM 143 MMOL/L (135-145); TOTAL CARBON DIOXIDE 27.4 MMOL/L (24-32); eGFR 63 ML/MIN
[2020-09-05] VITALS (9 sets, daily range): BP systolic 100–118; BP diastolic 51–81
[~2020-09-05] VITALS: Ht 160 cm; Wt 74.3 kg
[~2020-09-05 07:22] MED LIST changes: -BUPR300T54 PO; +BUPR300T99 PO
[2020-09-05] MEDS ORDERED: WARF-55 PO (07:51)
[2020-09-05] MEDS ORDERED: BUPR100T16 PO (07:51)
[2020-09-05] MEDS ORDERED: CALC600T15 PO (07:51)
[2020-09-05] MEDS ORDERED: MV-M1TAB19 PO (07:51)
[2020-09-05] MEDS ORDERED: normal saline 1000ml 1,000 ML IV SCH (08:30)
[2020-09-05] MEDS ORDERED: atropine 0.1mg/ml 10ml syringe IV ONE (08:30)
[2020-09-05] MEDS ORDERED: LORazepam 0.5 MG tablet PO ONE (08:30)
[2020-09-05] MEDS ORDERED: amiodarone 150mg/dext, iso-os 100 ML IV ONE (08:30)
[2020-09-05] MEDS ORDERED: MIDAZolam 1mg/ml 10ml vial IV ONE (08:30)
[2020-09-05] MEDS ORDERED: morphine 10mg/ml inj. IV ONE (08:30)
[2020-09-05] MEDS ORDERED: diphenhydrAMINE 25mg capsule PO ONE (08:30)
== END 2020-09-05 11:20 | disposition home or self-care (01) ==
LOC: SSTAY O 07:22
PROVIDERS: ATTEND Internal Medicine Cardiovascular Disease
DX: I48.0 Paroxysmal atrial fibrillation (principal); I25.10 Atherosclerotic heart disease of native coronary artery without angina pectoris; I49.5 Sick sinus syndrome; E78.49 Other hyperlipidemia; J44.9 Chronic obstructive pulmonary disease, unspecified; I34.9 Nonrheumatic mitral valve disorder, unspecified; F32.9 Major depressive disorder, single episode, unspecified; G43.909 Migraine, unspecified, not intractable, without status migrainosus; Z85.118 Personal history of other malignant neoplasm of bronchus and lung; Z79.82 Long term (current) use of aspirin; Z88.8 Allergy status to other drugs, medicaments and biological substances; Z79.899 Other long term (current) drug therapy; Z95.0 Presence of cardiac pacemaker; Z72.89 Other problems related to lifestyle; Z90.710 Acquired absence of both cervix and uterus; Z98.890 Other specified postprocedural states; Z82.49 Family history of ischemic heart disease and other diseases of the circulatory system
CPT/HCPCS: 36415; 80048; 85025; 85610; 92960; 93005; 94799; J2250; J2270; J7030

== ENCOUNTER 2021-09-02 14:58 | Emergency (ER) | payer MEDICARE, BC ==
[~2021-09-02] VITALS: Ht 160 cm; Wt 63.6 kg
[~2021-09-02 14:58] MED LIST changes: -ASPI-1265 PO; +BUPR100T16 PO; -BUPR300T99 PO; +CALC600T35 PO; -CHOL10002 PO; +MV-M1TAB19 PO; -OSC500T PO; +WARF-55 PO; -WARF6TAB PO
[2021-09-02 15:14] VITALS: BP 113/62
[2021-09-02 15:42] LABS: CLARITY,URINE TURBID (Clear); COLOR,URINE RED (Yellow); UA COLLECTION TYPE CLN CATCH MIDSTREAM
[2021-09-02 15:50] LABS: ALANINE AMINOTRANSFERASE 52 U/L (12-78); ALBUMIN 3.9 G/DL (3.4-5.0); ALKALINE PHOSPHATASE 86 IU/L (46-116); ANION GAP 9 (8-16); ASPARTATE AMINO TRANSFERASE 28 U/L (10-37); BASOPHILS % (AUTO) 0.4 % (0-1); BILIRUBIN,TOTAL 0.5 MG/DL (0.1-1.0); BLOOD UREA NITROGEN 16 MG/DL (7-18); BUN/CREATININE RATIO 13.3 (6.6-38.0); CALCIUM 9.5 MG/DL (8.5-10.1); CHLORIDE 107 MMOL/L (99-107); EOSINOPHILS # (AUTO) 0.1 X10'3 (0-0.9); EOSINOPHILS % (AUTO) 0.7 % (0-6); GLUCOSE 127 MG/DL (70-104); HEMOGLOBIN 15.6 g/dl (12.0-16.0); LYMPHOCYTES # (AUTO) 2.2 X10'3 (1.1-4.8); LYMPHOCYTES % (AUTO) 29.4 % (21-51); MEAN CORPUSCULAR HEMOGLOBIN 34.1 PG (27.0-31.0); MEAN CORPUSCULAR HGB CONC 34.7 g/dL (33.0-36.5); MEAN CORPUSCULAR VOLUME 98.2 FL (78-98); MEAN PLATELET VOLUME 9.5 FL (7.4-10.4); MONOCYTES # (AUTO) 0.6 X10'3 (0-0.9); MONOCYTES % (AUTO) 7.8 % (2-12); NEUTROPHILS # (AUTO) 4.5 X10'3 (1.8-7.7); NEUTROPHILS % (AUTO) 61.7 % (42-75); PLATELET COUNT 197 X10'3 (140-440); POTASSIUM 4.1 MMOL/L (3.5-5.1); RED BLOOD COUNT 4.58 X10'6 (4.20-5.60); RED CELL DISTRIBUTION WIDTH 14.8 % (11.5-14.5); SODIUM 145 MMOL/L (135-145); TOTAL CARBON DIOXIDE 29.4 MMOL/L (24-32); TOTAL PROTEIN 7.7 G/DL (6.4-8.2); WHITE BLOOD COUNT 7.3 X10'3 (4.5-11.0); eGFR 44 ML/MIN
[2021-09-02 15:53] LABS: PARTIAL THROMBOPLASTIN TIME 61 SECONDS (22-32)
[2021-09-02 16:09] LABS: RBC,URINE TNTC /HPF (0-2); SQUAMOUS EPITHELIAL CELL,UR MODERATE /LPF (FEW); WBC,URINE 20-30 /HPF (0-4)
[2021-09-02 16:13] LABS: BACTERIA,URINE 1+ /HPF (Neg)
[2021-09-02] MEDS ORDERED: phytonadione 10 MG/1 ML amp PO ONE (16:29)
[2021-09-02] MEDS ORDERED: MEP5T CORPAK (16:33)
== END 2021-09-02 17:07 | disposition home or self-care (01) ==
LOC: ER 15:02
DX: R31.9 Hematuria, unspecified (principal); I48.91 Unspecified atrial fibrillation; Z90.49 Acquired absence of other specified parts of digestive tract; Z95.5 Presence of coronary angioplasty implant and graft; Z90.710 Acquired absence of both cervix and uterus; Z95.0 Presence of cardiac pacemaker; Z88.8 Allergy status to other drugs, medicaments and biological substances; Z79.899 Other long term (current) drug therapy; Z79.01 Long term (current) use of anticoagulants
CPT/HCPCS: 36415; 80053; 81001; 85025; 85610; 85730; 87088; 99283; J3430

== ENCOUNTER 2024-05-26 12:48 | Emergency (ER) | payer BC, MEDICAID ==
[~2024-05-26] VITALS: Ht 160 cm; Wt 59.1 kg
[~2024-05-26 12:48] MED LIST changes: +APIX5TAB3 PO; -BUPR100T16 PO; -CALC600T35 PO; +CARV3.122 PO; -DIGO125T20 PO; -EVE1000C3 PO; +LAN0.125T PO; +LEVO-65 PO; -MULT-1179 PO; -MV-M1TAB19 PO; +NICO-631 TD; -OMEG-143 PO; +SIMV-42 PO; -SOTA80TA73 PO; -UBID10CA4 PO; -WARF-55 PO; -ZOC40T PO
[2024-05-26] MEDS ORDERED: CIPR2.5D21 RIGHTEYE (17:10)
[2024-05-26 17:27] VITALS: BP 120/68; PULSE 95; RESP 16; TEMP 98; O2SAT 98
== END 2024-05-26 17:28 | disposition home or self-care (01) ==
LOC: ER 12:49
DX: H00.021 Hordeolum internum right upper eyelid (principal); K21.9 Gastro-esophageal reflux disease without esophagitis; M19.90 Unspecified osteoarthritis, unspecified site; Z88.8 Allergy status to other drugs, medicaments and biological substances; Z79.899 Other long term (current) drug therapy; Z79.2 Long term (current) use of antibiotics; Z90.49 Acquired absence of other specified parts of digestive tract; Z90.710 Acquired absence of both cervix and uterus; Z98.890 Other specified postprocedural states
CPT/HCPCS: 99283

== ENCOUNTER 2024-07-17 09:44 | Emergency (ER) | payer BC, MEDICAID ==
[~2024-07-17] VITALS: Ht 160 cm; Wt 58.8 kg
[2024-07-17] MEDS ORDERED: CARB15DR91 LEFT EAR (11:07)
[2024-07-17] MEDS ORDERED: AMOX500C2 PO (11:07)
[2024-07-17] MEDS: amoxicillin 250mg capsule PO ONE (11:59)
[2024-07-17 12:01] VITALS: BP 139/84; PULSE 83; RESP 16; TEMP 98.1; O2SAT 97
== END 2024-07-17 12:02 | disposition home or self-care (01) ==
LOC: ER 09:45
DX: H66.91 Otitis media, unspecified, right ear (principal); H61.23 Impacted cerumen, bilateral; I48.91 Unspecified atrial fibrillation; K21.9 Gastro-esophageal reflux disease without esophagitis; M19.90 Unspecified osteoarthritis, unspecified site; Z88.8 Allergy status to other drugs, medicaments and biological substances; Z79.2 Long term (current) use of antibiotics; Z79.899 Other long term (current) drug therapy; Z90.49 Acquired absence of other specified parts of digestive tract; Z95.1 Presence of aortocoronary bypass graft; Z90.710 Acquired absence of both cervix and uterus; Z95.0 Presence of cardiac pacemaker
CPT/HCPCS: 99283

== ENCOUNTER 2024-07-28 14:32 | Emergency (ER) | payer BC, MEDICAID ==
[~2024-07-28] VITALS: Ht 160 cm; Wt 58.4 kg
[~2024-07-28 14:32] MED LIST changes: +AMOX500C2 PO; +CARB15DR91 LEFT EAR
[2024-07-28 14:34] VITALS: TEMP 97.6
[2024-07-28 15:09] LABS: BASOPHILS % (AUTO) 0.5 % (0-1); EOSINOPHILS # (AUTO) 0.1 X10'3 (0-0.9); EOSINOPHILS % (AUTO) 1.3 % (0-6); HEMATOCRIT 38.9 % (35.0-45.0); HEMOGLOBIN 12.7 g/dl (12.0-16.0); LYMPHOCYTES # (AUTO) 2.1 X10'3 (1.1-4.8); LYMPHOCYTES % (AUTO) 30.6 % (21-51); MEAN CORPUSCULAR HEMOGLOBIN 31.3 PG (27.0-31.0); MEAN CORPUSCULAR HGB CONC 32.6 g/dL (33.0-36.5); MEAN CORPUSCULAR VOLUME 95.9 FL (78-98); MEAN PLATELET VOLUME 8.5 FL (7.4-10.4); MONOCYTES # (AUTO) 0.5 X10'3 (0-0.9); MONOCYTES % (AUTO) 7.1 % (2-12); NEUTROPHILS # (AUTO) 4.2 X10'3 (1.8-7.7); NEUTROPHILS % (AUTO) 60.5 % (42-75); PLATELET COUNT 171 X10'3 (140-440); RED BLOOD COUNT 4.06 X10'6 (4.20-5.60); RED CELL DISTRIBUTION WIDTH 15.8 % (11.5-14.5)
[2024-07-28 15:17] LABS: BILIRUBIN,URINE NEGATIVE (Neg); CLARITY,URINE SLIGHTLY CLOUDY (Clear); COLOR,URINE YELLOW (Yellow); GLUCOSE, URINE NEGATIVE (Neg); KETONES,URINE NEGATIVE (Neg); LEUKOCYTE ESTERASE ,URINE TRACE (Neg); NITRITES, URINE NEGATIVE (Neg); OCCULT BLOOD,URINE TRACE-INTACT (Neg); PH,URINE 6.5 (4.8-8.0); PROTEIN,URINE NEGATIVE (Neg); UROBILINOGEN,URINE 0.2 E.U/dL (0.2-1.0)
[2024-07-28 15:20] LABS: ALBUMIN 3.4 G/DL (3.4-5.0); ANION GAP 7 (8-16); BLOOD UREA NITROGEN 17 MG/DL (7-18); BUN/CREATININE RATIO 15.6 (10.0-20.0); CALCIUM 10.1 MG/DL (8.5-10.1); CHLORIDE 106 MMOL/L (99-107); CREATININE 1.09 MG/DL (0.40-0.90); GLUCOSE 89 MG/DL (70-104); POTASSIUM 4.1 MMOL/L (3.5-5.1); SODIUM 141 MMOL/L (135-145); eCRCL 36 ML/MIN; eGFR 49 ML/MIN
[2024-07-28 15:21] LABS: UA COLLECTION TYPE CLN CATCH MIDSTREAM
[2024-07-28 15:23] LABS: SQUAMOUS EPITHELIAL CELL,UR MANY /LPF (FEW)
[2024-07-28 15:24] LABS: BACTERIA,URINE FEW /HPF (Neg); HYALINE CASTS 0-3 /LPF (NEGATIVE)
[2024-07-28 15:24] LABS: ETHANOL < 10 MG/DL (<10)
[2024-07-28 15:29] LABS: URINE AMPHETAMINE SCREEN NEGATIVE (Neg); URINE BARBITUATE SCREEN NEGATIVE (Neg); URINE BENZODIAZEPINES SCREEN NEGATIVE (Neg); URINE CANNABINOID SCREEN NEGATIVE (Neg); URINE COCAINE SCREEN NEGATIVE (Neg); URINE METHADONE SCREEN NEGATIVE (Neg); URINE OPIATE SCREEN NEGATIVE (Neg); URINE PHENCYCLIDINE SCREEN NEGATIVE (Neg)
[2024-07-28] MEDS ORDERED: iohexol 350MG/ML 100ml bottle IV ONE (16:37)
[2024-07-28] MEDS: morphine 2 MG/ML inj. syringe IV ONE (17:15)
[2024-07-28] MEDS: proCHLORperazine 10 MG/2 ml inj IV ONE (17:28)
[2024-07-28] MEDS: normal saline 1000ML IV soln IVB ONE (17:30)
[2024-07-28] MEDS: ketorolac trometh 15mg/ml vial 15 MG/ML ML IV ONE (17:30)
[2024-07-28] MEDS: SUMAtriptan succ. 6 MG/0.5ml vial SQ ONE (17:37)
[2024-07-28 21:49] VITALS: BP 153/69; PULSE 73; RESP 16; O2SAT 99
== END 2024-07-28 21:50 | disposition home or self-care (01) ==
LOC: ER 14:33
DX: G43.809 Other migraine, not intractable, without status migrainosus (principal); Z20.822 Contact with and (suspected) exposure to COVID-19; I48.91 Unspecified atrial fibrillation; K21.9 Gastro-esophageal reflux disease without esophagitis; M19.90 Unspecified osteoarthritis, unspecified site; Z88.8 Allergy status to other drugs, medicaments and biological substances; Z79.899 Other long term (current) drug therapy; Z90.710 Acquired absence of both cervix and uterus; Z87.891 Personal history of nicotine dependence
CPT/HCPCS: 36415; 70450; 70496; 70498; 80048; 80305; 80320; 81001; 83735; 85025; 87811; 96361; 96372; 96374; 96375; 99285; J0780; J1885; J3030; J7030; Q9967

== ENCOUNTER 2024-08-25 05:59 | Day surgery (SDC) | payer BC, MEDICAID ==
[2024-08-24 13:41] LABS: BASOPHILS % (AUTO) 0.5 % (0-1); EOSINOPHILS % (AUTO) 0.3 % (0-6); HEMATOCRIT 38.7 % (35.0-45.0); HEMOGLOBIN 12.9 g/dl (12.0-16.0); LYMPHOCYTES # (AUTO) 1.9 X10'3 (1.1-4.8); LYMPHOCYTES % (AUTO) 26.2 % (21-51); MEAN CORPUSCULAR HEMOGLOBIN 32.1 PG (27.0-31.0); MEAN CORPUSCULAR HGB CONC 33.3 g/dL (33.0-36.5); MEAN CORPUSCULAR VOLUME 96.4 FL (78-98); MEAN PLATELET VOLUME 8.4 FL (7.4-10.4); MONOCYTES # (AUTO) 0.6 X10'3 (0-0.9); MONOCYTES % (AUTO) 7.9 % (2-12); NEUTROPHILS # (AUTO) 4.7 X10'3 (1.8-7.7); NEUTROPHILS % (AUTO) 65.1 % (42-75); PLATELET COUNT 154 X10'3 (140-440); RED BLOOD COUNT 4.01 X10'6 (4.20-5.60); RED CELL DISTRIBUTION WIDTH 15.4 % (11.5-14.5); WHITE BLOOD COUNT 7.3 X10'3 (4.5-11.0)
[2024-08-24 13:53] LABS: ALBUMIN 3.4 G/DL (3.4-5.0); ANION GAP 6 (8-16); APTT 27 SECONDS (22-32); BLOOD UREA NITROGEN 21 MG/DL (7-18); BUN/CREATININE RATIO 16.5 (10.0-20.0); CHLORIDE 104 MMOL/L (99-107); CREATININE 1.27 MG/DL (0.40-0.90); GLUCOSE 88 MG/DL (70-104); POTASSIUM 4.3 MMOL/L (3.5-5.1); PROTHROMBIN TIME 10.4 SECONDS (9.0-12.0); SODIUM 138 MMOL/L (135-145); eGFR 41 ML/MIN
[2024-08-25] VITALS (12 sets, daily range): BP systolic 115–145; BP diastolic 46–99; PULSE 50–77; RESP 13–18; TEMP 98.2; O2SAT 95–98
[~2024-08-25] VITALS: Ht 160 cm; Wt 58.5 kg
[~2024-08-25 05:59] MED LIST changes: -AMOX500C2 PO
[2024-08-25] MEDS ORDERED: BUPR300T53 PO (06:32)
[2024-08-25] MEDS ORDERED: OMEG-166 PO (06:32)
[2024-08-25] MEDS ORDERED: TRAM50TA2 PO (06:33)
[2024-08-25] MEDS ORDERED: cefazolin 2gm/D5W 100mL 100 ML IV ONE (06:40)
[2024-08-25] MEDS ORDERED: fentaNYL/PF 50MCG/1 ML 2ML syringe ONE (06:41)
[2024-08-25] MEDS ORDERED: LIDOcaine 1% W/epiNEPHrine 1:100,000 20ml vial ONE ×2 (06:41→08:30)
[2024-08-25] MEDS ORDERED: ceFAZolin 1000mg inj ONE (06:41)
[2024-08-25] MEDS ORDERED: midazolam 1 mg/ML 2ml injection ONE (06:41)
[2024-08-25] MEDS ORDERED: CEPH-585 PO ×2 (09:43→09:46)
[2024-08-25] MEDS ORDERED: normal saline 1000ml 1,000 ML IV SCH (09:45)
[2024-08-25] MEDS ORDERED: HYDROcodone/acetaminophen 5mg/325mg tablet PO PRN (09:45)
[2024-08-25] MEDS ORDERED: HYDROcodone/acetaminophen 10/325mg tab PO PRN (09:45)
[2024-08-25] MEDS: vancomycin/NS 1 GM ADD-VANTAGE 250 ML X 1 DOSE IV ONE (10:12)
== END 2024-08-25 13:55 | disposition home or self-care (01) ==
LOC: SSTAY O 05:59
PROVIDERS: ATTEND Internal Medicine Cardiovascular Disease
DX: Z45.010 Encounter for checking and testing of cardiac pacemaker pulse generator [battery] (principal); I10 Essential (primary) hypertension; I25.10 Atherosclerotic heart disease of native coronary artery without angina pectoris; I48.0 Paroxysmal atrial fibrillation; I48.92 Unspecified atrial flutter; J44.9 Chronic obstructive pulmonary disease, unspecified; E78.5 Hyperlipidemia, unspecified; F41.9 Anxiety disorder, unspecified; F32.A Depression, unspecified; G43.909 Migraine, unspecified, not intractable, without status migrainosus; Z85.118 Personal history of other malignant neoplasm of bronchus and lung; Z79.01 Long term (current) use of anticoagulants; Z79.899 Other long term (current) drug therapy; Z90.2 Acquired absence of lung [part of]; Z90.89 Acquired absence of other organs; Z90.710 Acquired absence of both cervix and uterus; Z98.890 Other specified postprocedural states; Z88.8 Allergy status to other drugs, medicaments and biological substances; Z82.49 Family history of ischemic heart disease and other diseases of the circulatory system; Z82.3 Family history of stroke
CPT/HCPCS: 33228; 36415; 80048; 85025; 85610; 85730; 93005; 99152; 99153; C1785; J0690; J2250; J3010; J3370; J3490; J7030; A6449